=== PATIENT | female | born 1980 | race Caucasian/White ===

== ENCOUNTER 2016-08-06 08:48 | Emergency (ER) | payer BC ==
[2016-08-06 09:17] VITALS: BP 115/74
--- NOTE | 2016-08-06 09:53 | UC ---
Ear Complaint HPI - HPI Summary HPI Summary: 35 yo female with a 5 day hx of sinus pressure/nasal congestion/post nasal drip and sore throat both her ears hurt and this is her primary complaint no f/c - History of Current Complaint Chief Complaint: UCEar Stated Complaint: SORE THROAT, HEAD CONGESTION, EAR PAIN Time Seen by Provider: 08/06/16 09:44 Hx Obtained From: Patient Hx Last Menstrual Period: ~07/08/16 Onset/Duration: Gradual Onset, Lasting Days Severity Initially: Mild Severity Currently: Mild Pain Intensity: 4 Pain Scale Used: 0-10 Numeric Aggravating Factors: Nothing Alleviating Factors: Nothing Associated Signs/Symptoms: Positive: Hearing Loss, URI Symptoms - Allergies/Home Medications Allergies/Adverse Reactions: Allergies Allergy/AdvReac Type Severity Reaction Status Date / Time Benzoyl Peroxide Allergy Itching Verified 08/06/16 09:13 [From Benzamycin] Erythromycin Allergy Itching Verified 08/06/16 09:13 [From Benzamycin] Ethanol [From Benzamycin] Allergy Itching Verified 08/06/16 09:13 Home Medications: Home Medications Ibuprofen TAB* [Advil TAB*] 400 mg PO Q6H PRN 08/06/16 [History Confirmed ] Multivitamins/Minerals TAB* [Thera M Plus TAB*] 1 tab PO QAM 08/06/16 [History Confirmed 08/06/16] PMH/Surg Hx/FS Hx/Imm Hx - Surgical History Surgical History: Yes Surgery Procedure, Year, and Place: C-Sections, 2011 2008, [place]; Right Arthroscopy, 1998 - Family History Known Family History: Negative: Cardiac Disease, Hypertension, Diabetes - Social History Alcohol Use: Rare Substance Use Type: None Smoking Status (MU): Never Smoked Tobacco - Immunization History Most Recent Influenza Vaccination: Not the 2015/2016 Season Review of Systems Constitutional: Negative Skin: Negative Eyes: Negative ENT: Sore Throat, Ear Ache, Nasal Discharge Respiratory: Negative Cardiovascular: Negative Gastrointestinal: Negative Genitourinary: Negative Motor: Negative Neurovascular: Negative Musculoskeletal: Negative Neurological: Negative Psychological: Negative All Other Systems Reviewed And Are Negative: Yes Physical Exam Triage Information Reviewed: Yes Appearance: Well-Appearing, No Pain Distress, Well-Nourished Vital Signs: Initial Vital Signs Temp 98.4 F 08/06/16 09:12 Pulse 68 08/06/16 09:12 Resp 16 08/06/16 09:12 BP 115/74 08/06/16 09:12 Pulse Ox 100 08/06/16 09:12 Vital Signs Reviewed: Yes Eyes: Positive: Conjunctiva Clear ENT: Positive: Pharyngeal erythema, Nasal congestion, TM bulging - L>R, TM dull , Other: - mild bilateral max sinus tenderness. Negative: Hearing grossly normal - decreased LEFT, TMs normal, Tonsillar exudate, Trismus, Muffled/hoarse voice Neck: Positive: Supple, Nontender, No Lymphadenopathy Respiratory: Positive: Lungs clear, Normal breath sounds, No respiratory distress Cardiovascular: Positive: RRR, No Murmur Musculoskeletal: Positive: Strength Intact, ROM Intact, No Edema Neurological: Positive: Alert Psychological Exam: Normal Skin Exam: Normal Ear Complaint Course/Dx - Differential Dx/Diagnosis Provider Diagnoses: bilateral serous otitis media Discharge - Discharge Plan Condition: Stable Disposition: HOME Prescriptions: Amoxicillin (*) 875 mg PO BID #20 tab Fluticasone NASAL SPRAY 50MCG* [Flonase NASAL SPRAY 50MCG*] 2 spray BOTH NARES DAILY #1 btl Patient Education Materials: Serous Otitis Media (ED) Referrals: Khang Mccarthy MD [Primary Care Provider] - 2 Weeks (if not better) Additional Instructions: recheck for new or worsening symptoms
== END 2016-08-06 10:06 | disposition home or self-care (01) ==
LOC: UCCORT 08:48
DX: H65.93 Unspecified nonsuppurative otitis media, bilateral (principal); Z88.1 Allergy status to other antibiotic agents; Z88.8 Allergy status to other drugs, medicaments and biological substances
CPT/HCPCS: 99202; G0463

== ENCOUNTER 2016-08-24 17:29 | Emergency (ER) | payer BC ==
--- NOTE | 2016-08-24 18:34 | UC ---
Ear Complaint HPI - HPI Summary HPI Summary: LEFT EAR PAIN X 1 DAY, NO NASAL CONGESTION , NO FEVER, CHILLS, NO COUGH , NO SINUS PRESSURE - History of Current Complaint Chief Complaint: UCEar Stated Complaint: LEFT EAR PAIN Time Seen by Provider: 08/24/16 18:17 Hx Obtained From: Patient Hx Last Menstrual Period: 08/07/16 ?: No Onset/Duration: Sudden Onset, Lasting Days - 1, Still Present Severity Initially: Moderate Severity Currently: Moderate Aggravating Factors: Nothing Alleviating Factors: Nothing Associated Signs/Symptoms: Negative: Discharge, Hearing Loss, Foreign Body Sensation, Trauma to Ear, Swelling @, URI Symptoms - Allergies/Home Medications Allergies/Adverse Reactions: Allergies Allergy/AdvReac Type Severity Reaction Status Date / Time Benzoyl Peroxide Allergy Itching Verified 08/24/16 18:19 [From Benzamycin] Erythromycin Allergy Itching Verified 08/24/16 18:19 [From Benzamycin] Ethanol [From Benzamycin] Allergy Itching Verified 08/24/16 18:19 Home Medications: Home Medications Pseudoephedrine HCL ER TAB* [Sudafed 12 Hour*] 120 mg PO BID 08/24/16 [History Confirmed 08/24/16] PMH/Surg Hx/FS Hx/Imm Hx Previously Healthy: Yes - Surgical History Surgical History: Yes Surgery Procedure, Year, and Place: C-Sections, 2011 2008, [place] [employer]; Right Arthroscopy, 1998 - Family History Known Family History: Negative: Cardiac Disease, Hypertension, Diabetes - Social History Alcohol Use: Rare Substance Use Type: None Smoking Status (MU): Never Smoked Tobacco - Immunization History Most Recent Influenza Vaccination: Not the Season Review of Systems Constitutional: Negative Skin: Negative Eyes: Negative ENT: Ear Ache Respiratory: Negative Cardiovascular: Negative Gastrointestinal: Negative All Other Systems Reviewed And Are Negative: Yes Physical Exam Triage Information Reviewed: Yes Appearance: Well-Appearing, No Pain Distress, Well-Nourished Vital Signs: Initial Vital Signs Temp 99.1 F 08/24/16 18:15 Pulse 73 08/24/16 18:15 Resp 16 08/24/16 18:15 BP 120/68 08/24/16 18:15 Pulse Ox 100 08/24/16 18:15 Vital Signs Reviewed: Yes Eye Exam: Normal Eyes: Positive: Conjunctiva Clear ENT: Positive: Normal ENT inspection, Hearing grossly normal, Pharynx normal, TMs normal. Negative: Nasal congestion, Nasal drainage, TM bulging, TM dull, TM red, Tonsillar swelling, Tonsillar exudate Neck: Positive: Supple, Nontender, No Lymphadenopathy Respiratory: Positive: Chest non-tender, Lungs clear, Normal breath sounds Cardiovascular: Positive: RRR, No Murmur, Pulses Normal Abdominal Exam: Normal Skin Exam: Normal Ear Complaint Course/Dx - Differential Dx/Diagnosis Provider Diagnoses: OTALGIA Discharge - Discharge Plan Condition: Stable Disposition: HOME Patient Education Materials: Eustachian Tube Dysfunction (GEN) Referrals: Khang Mccarthy MD [Primary Care Provider] - If Needed
[2016-08-24 18:42] VITALS: BP 120/68
== END 2016-08-24 18:47 | disposition home or self-care (01) ==
LOC: UCCORT 17:29
DX: H92.02 Otalgia, left ear (principal); Z88.1 Allergy status to other antibiotic agents
CPT/HCPCS: 99212; G0463

== ENCOUNTER 2018-12-24 12:33 | Emergency (ER) | payer BC ==
[2018-12-24 13:47] VITALS: BP 114/67
--- NOTE | 2018-12-24 14:07 | UC ---
Skin Complaint HPI - HPI Summary HPI Summary: wound right lower leg x 6 days injury by the dog leash / rope burn of right lower leg the area is red , swollen, tender, + drainage no fever , no chills - History of Current Complaint Chief Complaint: UCSkin Time Seen by Provider: 12/24/18 13:43 Stated Complaint: ROPE BURN POSS. INFECTED - RT LEG Hx Obtained From: Patient Hx Last Menstrual Period: 12/10/18 ?: No Onset/Duration: Gradual Onset, Lasting Days - 6, Still Present Timing: Constant Onset Severity: Moderate Current Severity: Moderate Pain Intensity: 5 Location: Discrete - right lower leg Character: Swelling, Pain, Redness, Painful Aggravating Factor(s): Touch Alleviating Factor(s): Nothing Associated Signs & Symptoms: Positive: Drainage, Tenderness. Negative: Nausea, Fever, Chills, Bruising, Red Streaks - Allergy/Home Medications Allergies/Adverse Reactions: Allergies Allergy/AdvReac Type Severity Reaction Status Date / Time benzoyl peroxide Allergy Unknown Verified 12/24/18 13:49 [From Benzamycin] Reaction Details erythromycin base Allergy Unknown Verified 12/24/18 13:49 [From Benzamycin] Reaction Details PMH/Surg Hx/FS Hx/Imm Hx Previously Healthy: Yes - Surgical History Surgical History: Yes Surgery Procedure, Year, and Place: C-Sections, 2011 2008, [place]; Right Arthroscopy, 1998 - Family History Known Family History: Negative: Cardiac Disease, Hypertension, Diabetes - Social History Alcohol Use: Occasionally Substance Use Type: None Smoking Status (MU): Never Smoked Tobacco - Immunization History Most Recent Influenza Vaccination: Not the 2015/2016 Season Review of Systems All Other Systems Reviewed And Are Negative: Yes Constitutional: Positive: Negative Eyes: Positive: Negative ENT: Positive: Negative Respiratory: Positive: Negative Is Patient Immunocompromised?: No Physical Exam Triage Information Reviewed: Yes Appearance: Well-Appearing, No Pain Distress, Well-Nourished Vital Signs: Initial Vital Signs Temp 97.6 F 12/24/18 13:42 Pulse 66 12/24/18 13:42 Resp 16 12/24/18 13:42 BP 114/67 12/24/18 13:42 Pulse Ox 100 12/24/18 13:42 Vital Signs Reviewed: Yes Eye Exam: Normal Eyes: Positive: Conjunctiva Clear ENT Exam: Normal ENT: Positive: Normal ENT inspection, Hearing grossly normal, Pharynx normal Neck: Positive: Nontender, No Lymphadenopathy Respiratory: Positive: Chest non-tender, Lungs clear, Normal breath sounds Cardiovascular: Positive: RRR, No Murmur, Pulses Normal Psychological Exam: Normal Skin Exam: Normal Skin: Positive: Other - abrastion right lowe leg , + erythema, tender to touch, clear drainage , mild swelling Course/Dx - Diagnoses Provider Diagnosis: Abrasion of right lower leg with infection Discharge - Sign-Out/Discharge Documenting (check all that apply): Patient Departure All imaging exams completed and their final reports reviewed: No Studies - Discharge Plan Condition: Stable Disposition: HOME Prescriptions: Cephalexin CAP* [Keflex CAP*] 500 mg PO TID #21 cap Patient Education Materials: Wound Infection (ED) Referrals: Khang Mccarthy MD [Primary Care Provider] - If Needed - Billing Disposition and Condition Condition: STABLE Disposition: Home
== END 2018-12-24 14:09 | disposition home or self-care (01) ==
LOC: UCCORT 12:33
DX: S80.811A Abrasion, right lower leg, initial encounter (principal); L08.9 Local infection of the skin and subcutaneous tissue, unspecified; X08.8XXA Exposure to other specified smoke, fire and flames, initial encounter
CPT/HCPCS: 99212; G0463